=== PATIENT | male | born 1980 | race Caucasian/White ===

== ENCOUNTER 2019-03-08 04:25 | Emergency (ER) | payer MEDICAID ==
[~2019-03-08] VITALS: Ht 172.7 cm; Wt 91.0 kg
[2019-03-08] MEDS: SODIUM CHLORIDE 0.9% 1,000 ML IV ONE ×3 (05:04→12:19)
[2019-03-08 06:20] LABS: BASOPHILS % 0.3 % (0.0-2.0); HEMATOCRIT. 45.4 % (42.0-52.0); HEMOGLOBIN. 15.4 g/dL (14.0-18.0); LYMPHOCYTES % 12.7 % (20.0-50.0); MEAN CORPUSCULAR HEMOGLOBIN 32.6 pg (28.0-32.0); MEAN CORPUSCULAR VOLUME 96.2 fL (80.0-94.0); MONOCYTES % 5.4 % (2.0-8.0); NEUTROPHILS % 81.6 % (40.0-76.0); PLATELET 216 x1000/uL (130-400); RED BLOOD CELL COUNT 4.72 mill/uL (4.7-6.1); RED CELL DISTRIBUTION WIDTH 13.9 % (11.6-14.6)
[2019-03-08 06:27] LABS: CHLORIDE 108 mEq/L (98-107)
[2019-03-08 06:33] LABS: CLARITY URINE CLEAR (CLEAR); COLOR URINE YELLOW (YELLOW); KETONES URINE TRACE (NEGATIVE); LEUKOCYTE ESTERASE URINE NEGATIVE (NEGATIVE); NITRITE URINE NEGATIVE (NEGATIVE); OCCULT BLOOD URINE NEGATIVE (NEGATIVE); PROTEIN URINE 1+ (NEGATIVE); SPECIFIC GRAVITY URINE 1.021 (1.005-1.030); UROBILINOGEN URINE 0.2 E.U./dL (0.2-1.0)
[2019-03-08 06:38] LABS: ETHANOL BLOOD 20 mg/dL
[2019-03-08 06:45] LABS: *AMPHETAMINES SCREEN URINE PRESUMTIVE POSITIVE (NEGATIVE); *BARBITURATES SCREEN URINE NEGATIVE (NEGATIVE); *BENZODIAZEPINES SCREEN URINE NEGATIVE (NEGATIVE); *COCAINE SCREEN URINE NEGATIVE (NEGATIVE); METHADONE URINE SCREEN NEGATIVE (NEGATIVE); OPIATES URINE SCREEN NEGATIVE (NEGATIVE)
[2019-03-08 06:46] LABS: CANNABINOID URINE SCREEN NEGATIVE (NEGATIVE); PHENCYCLIDINE URINE SCREEN NEGATIVE (NEGATIVE)
[2019-03-08] MEDS: ACETAMINOPHEN 325MG TABLET PO ONE (07:09)
[2019-03-08] MEDS: KETOROLAC 60MG/2ML VIAL IM ONE (07:55)
[2019-03-08] MEDS: LORAZEPAM 2MG/ML CPJ IV ONE ×4 (09:10→12:17)
[2019-03-08] MEDS: HYDRALAZINE 20MG/ML VIAL IV ONE (11:32)
[2019-03-08] MEDS ORDERED: DILTIAZEM HCL 5MG/ML 5ML VIAL IV ONE (16:45)
[2019-03-08] MEDS ORDERED: LORAZEPAM 2MG/ML CPJ IV PRN (16:45)
[2019-03-08] MEDS ORDERED: KETOROLAC 30MG/ML VIAL IV PRN (16:45)
[2019-03-08] MEDS ORDERED: ONDANSETRON HCL 4MG/2ML INJ IV PRN (16:45)
[2019-03-08] MEDS ORDERED: ACETAMINOPHEN 325MG TABLET PO PRN (16:45)
[2019-03-08] MEDS: LOSARTAN POTASSIUM 50 MG TABLET PO SCH (18:43)
[2019-03-08] MEDS ORDERED: CLONIDINE 0.1MG TABLET PO PRN (19:00)
[2019-03-08] MEDS ORDERED: DILTIAZEM HCL 30MG TABLET PO SCH (22:00)
[2019-03-08 22:01] VITALS: BP 161/108
== END 2019-03-08 22:15 | disposition left against medical advice (07) ==
LOC: ER 05:31 → ENRESERV 21:30 → CANRESERV 21:30 → ER 22:15 → CANBEDREQ 22:44
DX: R51 Headache (principal); F15.99 Other stimulant use, unspecified with unspecified stimulant-induced disorder; F19.90 Other psychoactive substance use, unspecified, uncomplicated; R00.0 Tachycardia, unspecified; F15.10 Other stimulant abuse, uncomplicated
CPT/HCPCS: 36415; 70450; 80053; 80305; 80320; 81003; 82550; 84443; 84484; 85025; 93005; 96372; 96374; 96375; 96376; 99284; J0360; J1885; J2060; J7030; Z7610; G0480

== ENCOUNTER 2019-06-16 02:15 | Emergency (ER) | payer MEDICAID ==
[~2019-06-16] VITALS: Ht 167.6 cm; Wt 108.0 kg
[2019-06-16] MEDS ORDERED: SODIUM CHLORIDE 0.9% 1,000 ML IV ONE ×2 (03:15→05:45)
[2019-06-16] MEDS ORDERED: LORAZEPAM 2MG/ML CPJ IV ONE (03:15)
[2019-06-16] MEDS ORDERED: AMLODIPINE 5MG TABLET PO ONE (07:45)
[2019-06-16] MEDS ORDERED: CLONIDINE 0.2MG TABLET PO ONE (07:45)
[2019-06-16 08:14] LABS: BASOPHILS % 0.4 % (0.0-2.0); HEMATOCRIT. 43.7 % (42.0-52.0); HEMOGLOBIN. 14.8 g/dL (14.0-18.0); LYMPHOCYTES % 13.5 % (20.0-50.0); MEAN CORPUSCULAR HEMOGLOBIN 31.9 pg (28.0-32.0); MEAN CORPUSCULAR VOLUME 94.4 fL (80.0-94.0); MEAN PLATELET VOLUME 8.9 fl (7.4-10.4); MONOCYTES % 8.4 % (2.0-8.0); NEUTROPHILS % 77.7 % (40.0-76.0); PLATELET 215 x1000/uL (130-400); RED BLOOD CELL COUNT 4.63 mill/uL (4.7-6.1); RED CELL DISTRIBUTION WIDTH 13.5 % (11.6-14.6)
[2019-06-16 08:20] LABS: CHLORIDE 106 mEq/L (98-107)
[2019-06-16 09:30] VITALS: BP 165/111
[2019-06-16] MEDS ORDERED: LORAZEPAM 1MG TABLET PO ONE (09:30)
== END 2019-06-16 10:05 | disposition home or self-care (01) ==
LOC: ER 02:15
DX: F15.10 Other stimulant abuse, uncomplicated (principal); F41.9 Anxiety disorder, unspecified; R00.0 Tachycardia, unspecified
CPT/HCPCS: 36415; 71045; 80053; 84484; 85025; 93005; 96374; 99285; J2060; J7030

== ENCOUNTER 2019-06-26 07:48 | Emergency (ER) | payer MEDICAID ==
[~2019-06-26] VITALS: Ht 167.6 cm; Wt 109.0 kg
[2019-06-26] MEDS ORDERED: SODIUM CHLORIDE 0.9% 1,000 ML IV ONE ×2 (09:08)
[2019-06-26] MEDS ORDERED: LORAZEPAM 2MG/ML CPJ IV ONE ×2 (09:15→12:00)
[2019-06-26 09:28] LABS: BASOPHILS % 0.4 % (0.0-2.0); HEMATOCRIT. 48.3 % (42.0-52.0); HEMOGLOBIN. 16.4 g/dL (14.0-18.0); LYMPHOCYTES % 10.5 % (20.0-50.0); MEAN CORPUSCULAR HEMOGLOBIN 32.2 pg (28.0-32.0); MEAN PLATELET VOLUME 8.7 fl (7.4-10.4); MONOCYTES % 9.5 % (2.0-8.0); NEUTROPHILS % 79.6 % (40.0-76.0); PLATELET 234 x1000/uL (130-400); RED BLOOD CELL COUNT 5.09 mill/uL (4.7-6.1); RED CELL DISTRIBUTION WIDTH 14.6 % (11.6-14.6)
[2019-06-26 09:31] LABS: CHLORIDE 105 mEq/L (98-107)
[2019-06-26 09:38] LABS: ETHANOL BLOOD < 10 mg/dL
[2019-06-26 13:52] LABS: *AMPHETAMINES SCREEN URINE PRESUMTIVE POSITIVE (NEGATIVE); *BARBITURATES SCREEN URINE NEGATIVE (NEGATIVE); *BENZODIAZEPINES SCREEN URINE NEGATIVE (NEGATIVE)
[2019-06-26 13:53] LABS: *COCAINE SCREEN URINE NEGATIVE (NEGATIVE); CANNABINOID URINE SCREEN NEGATIVE (NEGATIVE); METHADONE URINE SCREEN NEGATIVE (NEGATIVE); PHENCYCLIDINE URINE SCREEN NEGATIVE (NEGATIVE)
[2019-06-26 14:01] VITALS: BP 128/89
[2019-06-29 17:52] LABS: OPIATES URINE SCREEN NEGATIVE (NEGATIVE)
== END 2019-06-26 14:26 | disposition home or self-care (01) ==
LOC: ER 07:48
DX: R00.2 Palpitations (principal); R00.0 Tachycardia, unspecified; F15.10 Other stimulant abuse, uncomplicated; F17.210 Nicotine dependence, cigarettes, uncomplicated
CPT/HCPCS: 36415; 71045; 80053; 80305; 80320; 83880; 84443; 84484; 85025; 93005; 96374; 96376; 99285; 99406; J2060; J7030; G0480

== ENCOUNTER 2019-11-21 06:51 | Emergency (ER) | payer MEDICAID ==
[~2019-11-21] VITALS: Ht 167.6 cm; Wt 109.0 kg
[2019-11-21] MEDS ORDERED: SODIUM CHLORIDE 0.9% 1,000 ML IV ONE (07:01)
[2019-11-21] MEDS ORDERED: LORAZEPAM 2MG/ML CPJ IV ONE ×2 (07:15→08:30)
[2019-11-21 07:37] LABS: BASOPHILS % 0.2 % (0.0-2.0); HEMATOCRIT. 44.5 % (42.0-52.0); HEMOGLOBIN. 14.9 g/dL (14.0-18.0); LYMPHOCYTES % 16.5 % (20.0-50.0); MEAN CORPUSCULAR HEMOGLOBIN 31.9 pg (28.0-32.0); MEAN CORPUSCULAR VOLUME 95.2 fL (80.0-94.0); MEAN PLATELET VOLUME 9.2 fl (7.4-10.4); MONOCYTES % 8.6 % (2.0-8.0); NEUTROPHILS % 74.7 % (40.0-76.0); PLATELET 213 x1000/uL (130-400); RED BLOOD CELL COUNT 4.67 mill/uL (4.7-6.1); RED CELL DISTRIBUTION WIDTH 14.8 % (11.6-14.6)
[2019-11-21 07:38] LABS: CHLORIDE 106 mEq/L (98-107)
[2019-11-21 10:18] LABS: *AMPHETAMINES SCREEN URINE PRESUMTIVE POSITIVE (NEGATIVE); *BARBITURATES SCREEN URINE NEGATIVE (NEGATIVE); *BENZODIAZEPINES SCREEN URINE NEGATIVE (NEGATIVE); *COCAINE SCREEN URINE NEGATIVE (NEGATIVE); METHADONE URINE SCREEN NEGATIVE (NEGATIVE); OPIATES URINE SCREEN NEGATIVE (NEGATIVE)
[2019-11-21 10:19] LABS: CANNABINOID URINE SCREEN NEGATIVE (NEGATIVE); PHENCYCLIDINE URINE SCREEN NEGATIVE (NEGATIVE)
[2019-11-21 11:50] VITALS: BP 148/74
== END 2019-11-21 11:55 | disposition left against medical advice (07) ==
LOC: ER 06:51 → ENRESERV 11:40 → ER 11:55 → CANBEDREQ 19:49
DX: R07.89 Other chest pain (principal); R00.0 Tachycardia, unspecified; F15.10 Other stimulant abuse, uncomplicated; E86.1 Hypovolemia; Z87.891 Personal history of nicotine dependence
CPT/HCPCS: 36415; 71045; 80053; 80305; 83880; 84484; 85025; 93005; 96361; 96374; 96376; 99285; J2060; J7030

== ENCOUNTER 2020-04-06 07:02 | Emergency (ER) | payer MEDICAID ==
[~2020-04-06] VITALS: Ht 167.6 cm; Wt 100.0 kg
[2020-04-06 07:04] VITALS: BP 163/110
== END 2020-04-06 12:24 | disposition left against medical advice (07) ==
LOC: ER 07:02
DX: Z53.21 Procedure and treatment not carried out due to patient leaving prior to being seen by health care provider (principal)
CPT/HCPCS: 93005

== ENCOUNTER 2020-06-08 17:01 | Emergency (ER) | payer MEDICAID ==
[~2020-06-08] VITALS: Ht 172.7 cm; Wt 80.0 kg
[2020-06-08] MEDS ORDERED: AMOX-424 MT (17:42)
[2020-06-08 17:59] VITALS: BP 141/93
== END 2020-06-08 17:51 | disposition home or self-care (01) ==
LOC: ER 17:01
DX: K62.89 Other specified diseases of anus and rectum (principal); F15.10 Other stimulant abuse, uncomplicated
CPT/HCPCS: 99283

== ENCOUNTER 2020-09-09 05:08 | Emergency (ER) | payer MEDICAID ==
[~2020-09-09] VITALS: Ht 177.8 cm; Wt 94.0 kg
[~2020-09-09 05:08] MED LIST: AMOX-424 MT
[2020-09-09] MEDS ORDERED: ASPIRIN 81MG TABLET PO ONE (05:30)
[2020-09-09] MEDS ORDERED: NITROGLYCERIN 0.4MG TABLET SL SL PRN (05:30)
[2020-09-09 05:52] LABS: BASOPHILS % 0.5 % (0.0-2.0); EOSINOPHILS % 0.1 % (0.0-5.0); HEMATOCRIT. 42.8 % (42.0-52.0); HEMOGLOBIN. 14.2 g/dL (14.0-18.0); LYMPHOCYTES % 22.2 % (20.0-50.0); MEAN CORPUSCULAR HEMOGLOBIN 30.6 pg (28.0-32.0); MEAN CORPUSCULAR VOLUME 92.4 fL (80.0-94.0); MONOCYTES % 7.6 % (2.0-8.0); NEUTROPHILS % 69.6 % (40.0-76.0); PLATELET 251 x1000/uL (130-400); RED BLOOD CELL COUNT 4.63 mill/uL (4.7-6.1); RED CELL DISTRIBUTION WIDTH 15.2 % (11.6-14.6)
[2020-09-09 05:59] LABS: CHLORIDE 104 mEq/L (98-107)
[2020-09-09 06:03] LABS: ETHANOL BLOOD 23 mg/dL
[2020-09-09] MEDS ORDERED: SODIUM CHLORIDE 0.9% 1,000 ML IV ONE (06:30)
[2020-09-09] MEDS ORDERED: LORAZEPAM 2MG/ML CPJ IV ONE (06:30)
[2020-09-09] MEDS ORDERED: KETOROLAC 30MG/ML VIAL IV ONE (06:30)
[2020-09-09 07:57] LABS: METHADONE URINE SCREEN NEGATIVE (NEGATIVE); OPIATES URINE SCREEN NEGATIVE (NEGATIVE)
[2020-09-09 07:58] LABS: *AMPHETAMINES SCREEN URINE PRESUMTIVE POSITIVE (NEGATIVE); *BARBITURATES SCREEN URINE NEGATIVE (NEGATIVE); *BENZODIAZEPINES SCREEN URINE NEGATIVE (NEGATIVE); *COCAINE SCREEN URINE NEGATIVE (NEGATIVE); CANNABINOID URINE SCREEN NEGATIVE (NEGATIVE); PHENCYCLIDINE URINE SCREEN NEGATIVE (NEGATIVE)
[2020-09-09] MEDS ORDERED: POTASSIUM CHLORIDE 20MEQ TABLET SR PO ONE (08:45)
[2020-09-09 09:00] VITALS: BP 139/94
== END 2020-09-09 09:13 | disposition home or self-care (01) ==
LOC: ER 05:08
DX: R07.89 Other chest pain (principal); R00.0 Tachycardia, unspecified; F15.10 Other stimulant abuse, uncomplicated; F10.129 Alcohol abuse with intoxication, unspecified; F17.290 Nicotine dependence, other tobacco product, uncomplicated
CPT/HCPCS: 36415; 71045; 80053; 80305; 80320; 83880; 84484; 85025; 93005; 96361; 96374; 96375; 99285; J1885; J2060; J7030; Z7610; G0480

== ENCOUNTER 2020-09-18 20:02 | Emergency (ER) | payer MEDICAID ==
[~2020-09-18] VITALS: Ht 167.6 cm; Wt 109.0 kg
[2020-09-18 20:10] VITALS: BP 172/116
[2020-09-18] MEDS ORDERED: LORAZEPAM 1MG TABLET PO ONE (20:30)
[2020-09-18 20:42] LABS: BASOPHILS % 0.3 % (0.0-2.0); EOSINOPHILS % 0.1 % (0.0-5.0); HEMATOCRIT. 41.5 % (42.0-52.0); HEMOGLOBIN. 14.4 g/dL (14.0-18.0); LYMPHOCYTES % 12.8 % (20.0-50.0); MEAN CORPUSCULAR HEMOGLOBIN 31.5 pg (28.0-32.0); MONOCYTES % 12.5 % (2.0-8.0); NEUTROPHILS % 74.3 % (40.0-76.0); PLATELET 261 x1000/uL (130-400); RED BLOOD CELL COUNT 4.56 mill/uL (4.7-6.1); RED CELL DISTRIBUTION WIDTH 15.8 % (11.6-14.6)
[2020-09-18 20:49] LABS: CHLORIDE 105 mEq/L (98-107)
[2020-09-18 20:53] LABS: ETHANOL BLOOD 71 mg/dL
[2020-09-18 23:22] LABS: METHADONE URINE SCREEN NEGATIVE (NEGATIVE); OPIATES URINE SCREEN PRESUMTIVE POSITIVE (NEGATIVE)
[2020-09-18 23:23] LABS: *AMPHETAMINES SCREEN URINE PRESUMTIVE POSITIVE (NEGATIVE); *BARBITURATES SCREEN URINE NEGATIVE (NEGATIVE); *BENZODIAZEPINES SCREEN URINE NEGATIVE (NEGATIVE); *COCAINE SCREEN URINE NEGATIVE (NEGATIVE); CANNABINOID URINE SCREEN NEGATIVE (NEGATIVE); PHENCYCLIDINE URINE SCREEN NEGATIVE (NEGATIVE)
== END 2020-09-19 02:41 | disposition home or self-care (01) ==
LOC: ER 20:08
DX: T43.621A Poisoning by amphetamines, accidental (unintentional), initial encounter (principal); R07.89 Other chest pain; F10.129 Alcohol abuse with intoxication, unspecified; Y90.3 Blood alcohol level of 60-79 mg/100 ml; Y92.018 Other place in single-family (private) house as the place of occurrence of the external cause
CPT/HCPCS: 36415; 71045; 80053; 80305; 80320; 84484; 85025; 93005; 99285; G0480

== ENCOUNTER 2021-09-15 22:53 | Emergency (ER) | payer MEDICAID ==
[~2021-09-15] VITALS: Ht 172.7 cm; Wt 88.0 kg
[2021-09-15] MEDS ORDERED: TETANUS, DIPHTHERIA, PERTUSSIS VAC/PF 0.5ML (>10YR OLD) IM ONE (23:00)
[2021-09-15 23:04] VITALS: BP 182/125
[2021-09-15 23:40] LABS: EOSINOPHILS % 0.1 % (0.0-5.0); MEAN PLATELET VOLUME 8.6 fl (7.4-10.4); RED CELL DISTRIBUTION WIDTH 16.3 % (11.6-14.6)
[2021-09-15 23:43] LABS: BASOPHILS % 0.1 % (0.0-2.0); HEMATOCRIT. 44.7 % (42.0-52.0); MEAN CORPUSCULAR VOLUME 92.5 fL (80.0-94.0); MONOCYTES % 9.7 % (2.0-8.0); NEUTROPHILS % 77.1 % (40.0-76.0); PLATELET 239 x1000/uL (130-400); RED BLOOD CELL COUNT 4.83 mill/uL (4.7-6.1)
[2021-09-15 23:47] LABS: CHLORIDE 103 mEq/L (98-107)
[2021-09-15 23:56] LABS: ETHANOL BLOOD < 10 mg/dL
== END 2021-09-16 01:43 | disposition left against medical advice (07) ==
LOC: ER 22:53
DX: F15.10 Other stimulant abuse, uncomplicated (principal); R44.3 Hallucinations, unspecified
CPT/HCPCS: 36415; 80053; 80320; 85025; 99283; G0480

== ENCOUNTER 2021-10-12 02:24 | Emergency (ER) | payer MEDICAID ==
[~2021-10-12] VITALS: Ht 167.6 cm; Wt 100.0 kg
[2021-10-12 02:26] VITALS: BP 162/114
== END 2021-10-12 03:00 | disposition home or self-care (01) ==
LOC: ER 02:24
DX: F15.10 Other stimulant abuse, uncomplicated (principal); R07.89 Other chest pain
CPT/HCPCS: 93005; 99283